=== PATIENT | male | born 1950 | race Caucasian/White ===

== ENCOUNTER 2017-01-26 06:42 | Inpatient (IN) | payer MEDICARE, OTHER ==
[2017-01-19 11:41] LABS: HEMATOCRIT 40.7 % (40.0-51.0)
[2017-01-19 11:43] LABS: BUN (BLOOD UREA NITROGEN) 17 MG/DL (6-23); CALCIUM, SERUM 8.9 MG/DL (8.5-10.4); CHLORIDE, SERUM 104 MMOL/L (96-112); CO2 (CARBON DIOXIDE) 29 MMOL/L (24-34); CREATININE 0.77 MG/DL (0.70-1.30); GFR AFRICAN AMERICAN 110 ML/MIN (>=60); GFR NON AFRICAN AMERICAN 95 ML/MIN (>=60); GLUCOSE, SERUM 83 MG/DL (60-99); POTASSIUM, SERUM 4.4 MMOL/L (3.5-5.3); SODIUM, SERUM 139 MMOL/L (135-148)
[~2017-01-26] VITALS: Ht 177.8 cm; Wt 107.0 kg
--- NOTE | ~2017-01-26 | OP ---
Record Of Operation [facility] [address] [place]. [address] NAME: MAGALY RICHEY : 50 STATUS : ADM IN PAT#: [id number] AGE: 66 ADM/REG DATE : 01/26/17 MR#: [id number] REPORT SERV DATE: 01/26/17 DICTATED BY: ZEUS ORDONEZ DATE: 01/26/17 REPORT STATUS : Draft TRANSCRIBED BY: MODL DATE: 01/26/17 DATE OF PROCEDURE: 01/26/2017 PREOPERATIVE DIAGNOSIS: Prostate cancer. POSTOPERATIVE DIAGNOSIS: Prostate cancer. PROCEDURES: Robotic-assisted laparoscopic radical prostatectomy with left laparoscopic pelvic lymph node dissection. WIRELESS CONSULTANT: LISANDRA Schrader ANESTHESIA: General. PREOPERATIVE INDICATIONS: A 66-year-old male with a positive family history of prostate cancer presented with a PSA of 4.15. Biopsies disclosed a [place] 8, 4+4 prostate cancer at the left base as well as a Adriana 7, 3+4 at the left apex. There was a single course of [place] 6 at the right base. CT scan and bone scan were negative for extraprostatic disease. Previous abdominal surgery was remarkable for partial colectomy in 2002. After reviewing his options, risks, alternatives, and benefits, he elected surgical management with a robotic approach. DESCRIPTION OF OPERATIVE PROCEDURE: Following adequate general anesthesia, the patient was placed in a modified lithotomy position, well padded and secured to the table, placed in a steep Trendelenburg position. He was noted to be safely secured to the table and was returned to a level position where he was prepped and draped in the usual sterile fashion. A 16-Surinamese catheter was placed into the bladder from the operative field. A pneumoperitoneum was achieved with a Veress needle. A 12 mm port was placed in the left upper quadrant with the Optiview system. The camera was placed into the abdomen and the abdomen inspected, and there were no abnormal findings. There were some expected adhesions. There were omental adhesions at the level of the umbilicus and several omental and bowel adhesions in the pelvis. There was sufficient space to place the four robotic ports. These were placed under direct vision. An 8 mm left lower quadrant port was placed with laparoscopic idalia. The omental adhesions were taken down sharply. The patient was then placed in a Trendelenburg position and docked to the robot. The pelvic adhesions were taken down bluntly and sharply with round-tip scissors. The bladder was then taken down by incising laterally along the median umbilical ligaments to the level of the vas deferens bilaterally with electrocautery idalia. The space of Retzius was developed bluntly. Fat was dissected off the anterior surface of the prostate sharply and sent for separate pathology review in view of his high risk disease. The endopelvic fascia was incised bilaterally and the levator muscles swept off the lateral surface of the prostate bilaterally. The dorsal vein complex was dissected out and controlled and divided with an endovascular LUIS FERNANDO stapler. The bladder neck was incised at its junction with the base of the prostate with the Record Of Operation [facility] [address] [facility] [place]. [address] NAME: MAGALY RICHEY : 50 STATUS : ADM IN [facility]#: [id number] AGE: 66 ADM/REG DATE : 01/26/17 MR#: [id number] REPORT SERV DATE: 01/26/17 DICTATED BY: ZEUS ORDONEZ DATE: 01/26/17 REPORT STATUS : Draft TRANSCRIBED BY: MIRLANDE DATE: 01/26/17 electrocautery spatula. The bladder was entered. The catheter was grasped with a ProGrasp grasper and used for anterior retraction of the prostate. The posterior bladder neck was developed and incised with the electrocautery spatula. A plane was bluntly developed between the posterior bladder neck and prostate. Anterior Denonvilliers fascia was incised to expose the vas deferens and seminal vesicles. The vas deferens were dissected out bluntly, divided sharply and the ends of the vas deferens grasped with the ProGrasp grasper for additional anterior retraction of the prostate. The seminal vesicles were dissected out bluntly. Their blood supply controlled with interlocking clips and then divided sharply at their base. The bladder neck was inspected and did require some minor reconstruction with two [id number] 3-0 Vicryl sutures at the 3 and 9 o'clock position taking care to avoid the ureteral orifices. Posterior Denonvilliers fascia was incised and a plane was bluntly developed between the rectum and prostate. The levator fascia was incised bilaterally and the neurovascular bundles bluntly and easily dissected away from the posterolateral surface of the prostate bilaterally. The pedicles were controlled with interlocking clips and divided sharply with round-tip scissors. The urethra was dissected out with the round-tip scissors. The dorsal vein complex was secured to the pubic periosteum with a [id number] 2-0 Monocryl suture. The urethra was then divided sharply at the prostatourethral junction. The catheter was withdrawn the posterior urethra was divided as well as remaining apical attachments and the prostate was freed. A left laparoscopic pelvic lymph node dissection was performed with the margins of dissection being the anterior surface of the external iliac vein. The bifurcation of the external and internal iliac artery and the pelvic sidewall both anterior and posterior to the obturator nerve. Margins were controlled with interlocking clips and the specimen divided sharply with a round-tip scissors. The ines specimen and prostate were placed in an EndoCatch sac and placed out of the view of the operative field. The pelvis was irrigated with sterile water and antibiotic solution. It was carefully inspected. There were excellent hemostasis and no apparent rectal injury. Posterior Denonvilliers fascia was then reapproximated to the posterior urethral plate with running 3- 0 V-Loc suture in a Ari stitch fashion. The urethrovesical anastomosis was performed with a running 3-0 V-Loc suture over a 20-Surinamese catheter. The balloon was filled with 10 mL of sterile water. The bladder was irrigated with sterile water. There was a watertight anastomosis. A 19 Scar drain was passed through one of the robotic ports and placed into the pelvis. The port was removed, its exit site demonstrating good hemostasis. The drain was fixed to the skin with 2-0 Prolene suture. The patient was de-docked from the robot and returned to a level position. The remaining trocars were removed under direct vision, their exit sites demonstrating good hemostasis. The periumbilical port was used to guide a transverse fascial incision to allow intact retrieval of the specimen. This was closed with five interrupted #1 Ethibond sutures. The periumbilical wound and port sites were irrigated with antibiotic solution and skin edges reapproximated with skin clips. The drain was left to grenade suction. The catheter was left to gravity drainage. Bandages were applied. The procedure was concluded. He was awakened from his anesthesia, had tolerated it well and transferred to the recovery room in satisfactory condition. Record Of Operation [facility] [address] [facility] [place]. [address] NAME: MAGALY RICHEY : 50 STATUS : ADM IN PAT#: [id number] AGE: 66 ADM/REG DATE : 01/26/17 MR#: [id number] REPORT SERV DATE: 01/26/17 DICTATED BY: ZEUS ORDONEZ DATE: 01/26/17 REPORT STATUS : Draft TRANSCRIBED BY: MIRLANDE DATE: 01/26/17 DORIAN/MIRLANDE Zeus Ordonez M.D. / [id number] CC: Zeus Ordonez M.D.
[~2017-01-26 06:42] MED LIST: ASAB PO; PAX10; PAX10 PO; PLAVIX PO; ZOCOR10 PO; ZOCOR40 PO
[2017-01-26 13:09] LABS: HEMATOCRIT 40.2 % (40.0-51.0); HEMOGLOBIN 13.7 g/dL (13.6-17.8)
[2017-01-26 13:18] LABS: CREATININE 1.12 MG/DL (0.70-1.30); POTASSIUM, SERUM 4.3 MMOL/L (3.5-5.3)
== END 2017-01-27 14:06 | disposition home or self-care (01) | DRG 708 ==
LOC: ENRESERVTM → ENRESERV → ENRESERVDT → SDC/OF 06:42 → 4SO 06:42 → PACU 12:34 → 4SO 13:32
PROVIDERS: Urology
PROC: 07BC4ZX Excision of Pelvis Lymphatic, Percutaneous Endoscopic Approach, Diagnostic (ICD-10-PCS; 2017-01-26)
PROC: 8E0W4CZ Robotic Assisted Procedure of Trunk Region, Percutaneous Endoscopic Approach (ICD-10-PCS; 2017-01-26)
PROC: 0VT04ZZ Resection of Prostate, Percutaneous Endoscopic Approach (ICD-10-PCS; principal; 2017-01-26 07:30)
DX: C61 Malignant neoplasm of prostate (principal); E66.01 Morbid (severe) obesity due to excess calories; Z85.038 Personal history of other malignant neoplasm of large intestine; E78.00 Pure hypercholesterolemia, unspecified; Z68.33 Body mass index [BMI] 33.0-33.9, adult
CPT/HCPCS: 80048; 82565; 84132; 85014; 85018; 88305; 88307; 88309; 93005; A9270-GY; J0690; J1885; J2250; J2370; J2405; J2710; J2795; J3010